=== PATIENT | female | born 1985 | race Native Hawaiian/Other Pacific Islander ===

== ENCOUNTER 2017-05-28 07:13 | Day surgery (SDC) | payer OTHER ==
[~2017-05-28 07:13] MED LIST: ALTEPLASE 2 MG VIAL IVP PRN; FLUMAZENIL 0.5 MG/5 ML MDV IVP PRN; GLUCAGON HCL 1 MG VIAL IVP PRN; HEPARIN 10,000 UNIT/10 ML MDV IVP PRN; MEPERIDINE 25 MG/ML SYR IVP PRN; MIDAZOLAM 2 MG/2 ML VIAL IVP PRN; NALOXONE HCL 0.4 MG/ML INJ IVP PRN; PROTAMINE SULFATE 50 MG/5 ML VIAL IVP PRN; fentaNYL 100 MCG/2 ML INJ IVP PRN
[2017-05-28] MEDS ORDERED: NS 1,000 ML IV SCH (07:15)
[2017-05-28] MEDS ORDERED: NALOXONE HCL 0.4 MG/ML INJ ONE (07:22)
[2017-05-28] MEDS ORDERED: MIDAZOLAM 2 MG/2 ML VIAL ONE (07:23)
[2017-05-28] MEDS ORDERED: FLUMAZENIL 0.5 MG/5 ML MDV IVP ONE (07:23)
[2017-05-28] MEDS ORDERED: fentaNYL 100 MCG/2 ML INJ ONE (07:23)
[2017-05-28 07:40] VITALS: PULSE 79; TEMP 97.3
[2017-05-28 07:48] LABS: PLATELET COUNT 195 10^3/uL (150-400)
[2017-05-28 07:57] LABS: INR 0.97 (0.83-1.16); PROTIME(PATIENT) 13.1 SEC (12.0-15.0)
--- NOTE | 2017-05-28 08:32 | PDGENHP ---
History & Physical Chief Complaint: Lupus, proteinuria History of Present Illness: Lupus for five years Pertinent Past, Social, Family History: Anemia, high blood pressure. Allergy to PCN (rash) Relevant Physical Exam: Lungs: clear to auscultation. Heart: RRR, 84 bpm, minimal low pitched systolic murmur.
--- NOTE | 2017-05-28 08:36 | PDPROPOC ---
Sedation Plan of Care Sedation Plan of Care: vital signs stable, mental status noted, patient educated of risks, benefits, alternatives, patient can tolerate sedation ASA Classification: ASA 2 Planned drugs: fentanyl, midazolam Mallampati Score: Class 1 Mallampati Reference Image: Patient passed 3-3-2 rule?: Yes
[2017-05-28 08:55] VITALS: RESP 25
[2017-05-28] MEDS ORDERED: OXYCODONE/APAP 5/325 TAB PO PRN (09:30)
[2017-05-28] MEDS ORDERED: ACETAMINOPHEN 325 MG TAB PO PRN (09:30)
[2017-05-28] MEDS ORDERED: ONDANSETRON 4 MG/2 ML VIAL IVP PRN (09:30)
--- NOTE | 2017-05-28 09:30 | PDRADPN ---
Radiology Procedure Note Date of Procedure: 05/28/17 Radiologist: Samir Tucker Anesthesia: IV Sedation Pre-op Diagnosis: SLE, proteinuria Post-op Diagnosis: Same Indication: Same Procedure: CT-guided core needle biopsy of left kidney. Finding(s): Cores of tissue obtained from lower pole of left kidney. Inf/Abcess present in the surg proc area at time of surgery?: No EBL: Minimal Complications: None. Specimen(s): 18 gauge cores from left renal cortex. One in formalin. One in Arian's fixative.
[2017-05-28] MEDS ORDERED: ONDANSETRON 4 MG/2 ML VIAL ONE (09:33)
--- NOTE | 2017-05-28 13:25 | SOAPPROG ---
SOAP Progress Note Assessment/Plan: Assessment: Insignificant decrease in hematocrit. Plan: Continue to follow. 05/28/17 13:22 Subjective: Mild abdominal discomfort anteriorly, periumbilical. No flank pain. Objective: VSS. No flank tenderness. Vital Signs Temp Pulse Resp BP Pulse Ox 36.3 C 79 25 H 121/73 H 100 05/28/17 07:25 05/28/17 07:25 05/28/17 07:52 05/28/17 13:01 05/28/17 13:01 Laboratory Results 05/28/17 12:00 05/28/17 06:37 PT 13.1 SEC (12.0-15.0) 05/28/17 06:37 INR 0.97 (0.83-1.16) 05/28/17 06:37 ICD10 Worksheet Patient Problems: Problems Problem Status Onset Proteinuria Acute - ICD10 Problem Qualifiers (1) Proteinuria Qualifiers: Proteinuria type: persistent Qualified Code(s): R80.1 - Persistent proteinuria, unspecified
[2017-05-28 15:01] VITALS: BP 122/80; O2SAT 97
== END 2017-05-28 15:30 | disposition home or self-care (01) ==
LOC: FIMAGING 07:13
PROVIDERS: ATTEND Internal Medicine Nephrology
PROC: 0TB13ZX Excision of Left Kidney, Percutaneous Approach, Diagnostic (ICD-10-PCS; principal; 2017-05-28 09:38)
DX: M32.14 Glomerular disease in systemic lupus erythematosus (principal); I10 Essential (primary) hypertension
CPT/HCPCS: J2250; J2310; J2405; J3010